=== PATIENT | female | born 1965 | race Caucasian/White ===

== ENCOUNTER 2020-03-02 14:57 | Emergency (ER) | payer SELFPAY ==
[2020-03-02 15:27] VITALS: BP 116/79; PULSE 80; RESP 18; TEMP 36.7; O2SAT 98; BMI 24.5
--- NOTE | 2020-03-02 15:30 | XR_ITS ---
WS: [id number] FOOT LEFT TECHNIQUE: 3 views of the left foot CLINICAL INFORMATION: stepped on metal sewing needle 1 wk ago; pain COMPARISON: None. FINDINGS: 7.4 mm radiopaque needle fragment projected between the first and second metatarsals in the plantar s oft tissues. XR/XR foot LT min 3V* [id number] IMPRESSION: Radiopaque needle fragment described above
--- NOTE | 2020-03-02 15:30 | ED_ITS ---
HPI - Extremity Injury (Lower) General: Chief Complaint: Extremity Injury, Lower Stated Complaint: L foot injury Time Seen by Provider: 03/02/20 15:24 Source: patient Mode of arrival: ambulatory Limitations: no limitations History of Present Illness: HPI Narrative: Patient is a 54-year-old female who presents to ED today with a concern of a retained foreign body to her left foot. Patient states she stepped on a sewing needle approximately a week ago and pulled the needle out of her foot. Patient states she is not sure if a portion of the needle is retained or if she stepped on a separate needle as she continues to have pain and swelling to the bottom of her foot. complaint: foot injury Onset (ago): day(s) Injury: Left: foot Type of Injury: puncture wound Place: home Severity: moderate Relieving factors: immobilization Exacerbating factors: weight bearing and palpation Context: stepped on nail (sewing needle) Other symptoms: none Review of Systems Musc: Reports: extremity pain (L foot pain) and extremity swelling Skin/Breast: Reports: other (no redness/warmth) [facility] ED PFSH: Social History Smoking and tobacco status: current every day smoker Physical Exam Const: COMMON NORMALS: no acute distress, average body habitus, patient oriented x3, no limitations, healthy appearing, alert and well nourished Extremity: OTHER: pt with very small puncture wound to distal plantar foot; there is mild surrounding swelling but no redness, warmth, streaking, drainage, or odor; no palpable fb appreciated Neuro: COMMON NORMALS: patient oriented x3 SENSORIUM/ORIENTATION: Yes alert Skin: OTHER: see extremity assessment Course Vital Signs: Vital signs: Vital Signs Temperature 98.1 F 03/02/20 15:27 Pulse Rate 80 03/02/20 15:27 Respiratory Rate 18 03/02/20 15:27 Blood Pressure 116/79 03/02/20 15:27 Pulse Oximetry 98 03/02/20 15:35 MDM - Extremity Injury (Lower) MDM Narrative: Medical decision making narrative: needle depth was measured on XR and is almost 2cm deep; this is too deep for me to incise on her plantar foot from the ED especially since the likelihood of finding it blindly would be incredibly low; we will refer her to podiatry and they can assess and remove fb; there is no evidence for acute infection at this time but will go ahead and cover with abx; return to ED precautions given Imaging Data^: L foot XR: Radiologist's impression: [address] [address] XRay Report Signed Patient: Breann Luque Unit #: [id number] : 1965 Age/Sex: 54 / F ADM Date: 03/02/20 Loc: ER Room/Bed: Attending Dr: Ordering Provider/Ordering MD: Lois Segal Date of Service: 03/02/20 Procedure(s): XR foot LT min 3V* [id number] Accession Number(s): [id number] Report Number: [id number] WS: [id number] FOOT LEFT TECHNIQUE: 3 views of the left foot CLINICAL INFORMATION: stepped on metal sewing needle 1 wk ago; pain COMPARISON: None. FINDINGS: 7.4 mm radiopaque needle fragment projected between the first and second m etatarsals in the plantar soft tissues. XR/XR foot LT min 3V* [id number] IMPRESSION: Radiopaque needle fragment described above Dictated By: Merritt Alston MD Signed By: Merritt Alston MD Signed Date/Time: 03/02/201557 DD/ 55 Discharge Plan Discharge Patient Disposition: Home, Self-Care Clinical Impression: Acute foreign body of left foot Qualifiers: Encounter type: initial encounter Qualified Code(s): S90.852A - Superficial foreign body, left foot, initial encounter Condition: Stable Prescriptions: New Bactrim DS 800-160 mg tablet 1 tab PO BID 7 Days Qty: 14 RF: 0 No Action hydrocodone-acetaminophen 5-325 mg tablet 1 tab PO Q8H RF: 0 clonazepam 0.5 mg tablet 0.5 mg PO DAILY RF: 0 Vitamin B-12 2,000 mcg Tablet Extended Release 2,000 mcg PO DAILY RF: 0 Discharge Orders: Discharge Order (Routine); Ordered 03/02/20 Ordered By: Lois Segal Referrals: Michoacano Gonsales DPM [Physician] - Patient Instructions: Soft Tissue Foreign Body (ED) Activity Restrictions/Additional Instructions: You have provided your mother's phone number for us to get in touch with you. Case management will contact this number tomorrow to get you set up with Dr. Gonsales for probable surgical removal of the foreign body. As discussed the foreign body was too deep to try to remove from the emergency department. Coding Level of Care Code ED Social Insurance Administrator for Elizabeth Holguin Exam Problem Focused
[2020-03-02 15:35] VITALS: O2SAT 98
--- NOTE | 2020-03-03 09:34 | DCPLANNER ---
clinical marketing manager had message to schedule a follow up appointment for patient with ortho. clinical marketing manager called the ortho clinic spoke with Tracy, gave clinic patients information. clinical marketing manager was told that patients information would be printed and reviewed. Clinic will call home health care case manager and patient with appointment information.
--- NOTE | 2020-03-04 08:47 | DCPLANNER ---
Patient had an appointment scheduled for 03.03.20 with ortho, patient did attend the appointment.
== END 2020-03-02 16:12 | disposition home or self-care (01) ==
PROVIDERS: Emergency Provider Physician Assistant
DX: S91.342A Puncture wound with foreign body, left foot, initial encounter (principal); W26.8XXA Contact with other sharp object(s), not elsewhere classified, initial encounter; F17.210 Nicotine dependence, cigarettes, uncomplicated
CPT/HCPCS: 12345; 73630; 99281; 99283; E0114

== ENCOUNTER 2020-03-03 16:56 | Outpatient (CLI) | payer OTHER, SELFPAY | END 2020-03-03 16:57 | disposition home or self-care (01) | LOC: SPT 16:57 | PROVIDERS: Visit Provider Podiatrist Foot & Ankle Surgery | DX: Z46.89 Encounter for fitting and adjustment of other specified devices (principal); Z18.9 Retained foreign body fragments, unspecified material | CPT/HCPCS: 97760; L4361 ==